=== PATIENT | female | born 1950 | race Caucasian/White ===

== ENCOUNTER → 2016-08-06 | Outpatient (CLI) | payer BC ==
[~2016-08-06] MED LIST: ASCA500 PO; CHOL100010 PO; CLTP PO; FERR324T PO; PANT40TA PO; WARF1TAB PO; [UNRECOGNIZED DRUG - CODE] PO
--- NOTE | 2016-08-06 14:32 | DIAGNOSTIC IMAGING REPORT ---
TWO VIEW CHEST CLINICAL HISTORY: Cough. FINDINGS: PA and lateral chest radiographs are compared to study dated 04/22/2012. The cardiomediastinal silhouette is unremarkable. There is mild atherosclerotic calcification of the thoracic aorta. The lungs and pleural spaces are clear. There is no pneumothorax. The skeletal structures are osteopenic. Degenerative change is noted in the thoracic spine. IMPRESSION: No active disease in the chest. Electronically signed by: Behzad Jules M.D. 08/06/2016 2:31 PM Dictated Date/Time: 08/06/2016 2:27 PM
== END | disposition home or self-care (01) ==
LOC: C.RAD1850 14:15
PROVIDERS: ATTEND Family Medicine
DX: R05 Cough (principal)